=== PATIENT | male | born 1965 | race American Indian/Alaskan Native ===

== ENCOUNTER 2021-05-01 07:54 | Day surgery (SDC) | payer BC ==
[~2021-05-01 07:54] MED LIST: Midazolam 1 MG/ML 2 ML SDV ONE; Propofol 200 MG/20 ML SDV ONE; fentaNYL 100 MCG/2 ML SDV ONE
[2021-05-01] MEDS ORDERED: Sodium Chloride 0.9% 1,000 ML IV SCH (08:30)
[2021-05-01 08:46] LABS: CORONAVIRUS COVID-19 NAA NEGATIVE (NEGATIVE)
--- NOTE | 2021-05-01 10:57 | OR ---
DATE OF PROCEDURE: 05/01/2021 SURGEON: Brent Mujica MD PROCEDURE: Colonoscopy. FINDINGS: Descending colon polyp, approximately 5 mm, completely removed using cold biopsy forceps. COMPLICATIONS: None. DOCUMENT ADVISOR: None. ANESTHESIA: MAC. PREOPERATIVE DIAGNOSIS: Screening colonoscopy. POSTOPERATIVE DIAGNOSIS: Screening colonoscopy. RISKS: Risks, benefits, alternatives, and limitations including, but not limited to infection, bleeding, perforation, false positives and false negatives were explained to the patient who wished to proceed. PROCEDURE IN DETAIL: The patient was placed in left lateral decubitus position. Digital rectal exam was performed without abnormality. Scope was introduced and advanced atraumatically to the ileocecal valve. A photo was taken of this. Scope was brought back through the ascending, transverse, descending colon, and retroflexed. The aforementioned polyp was identified and completely removed. No evidence of old or new blood. No masses. No diverticulosis. No colitis. Greater than 8 minutes was spent removing the scope. The prep was acceptable, approximately 90% of the luminal surface could be seen. The patient tolerated the procedure well. Brent Mujica MD /[id number]
== END 2021-05-01 10:30 | disposition home or self-care (01) ==
LOC: JP.SDS 07:54
PROVIDERS: ATTEND Surgery
DX: Z12.11 Encounter for screening for malignant neoplasm of colon (principal); D12.4 Benign neoplasm of descending colon; Z87.891 Personal history of nicotine dependence; Z01.812 Encounter for preprocedural laboratory examination; Z20.822 Contact with and (suspected) exposure to COVID-19
CPT/HCPCS: 0241U; 45380; 88305; J2250; J2704; J3010; J7030